=== PATIENT | female | born 1960 | race Caucasian/White ===

== ENCOUNTER 2016-11-10 13:59 | Outpatient (CLI) | payer OTHER | END 2016-11-10 20:25 | disposition home or self-care (01) | LOC: SRD 13:59 | DX: Z01.818 Encounter for other preprocedural examination (principal) | CPT/HCPCS: 71020-TC ==

== ENCOUNTER 2017-04-27 08:41 | Emergency (ER) | payer OTHER ==
[~2017-04-27] VITALS: Ht 162.6 cm; Wt 68.0 kg
[2017-04-27 08:47] VITALS: BP_SYST 156
--- NOTE | 2017-04-27 08:54 | NUR ---
Patient to ER bed 6 to gown for evaluation. Side rails up. Report given to Josiah POOLE.
--- NOTE | 2017-04-27 09:02 | NUR ---
Dr. Patel at bedside for evaluation
--- NOTE | 2017-04-27 09:05 | NUR ---
Pt c/o right shoulder pain non injury. Taking ibuprofen for pain without relief. Unable to reach up and work effectively.
[2017-04-27 09:20] VITALS: BP_SYST 156
--- NOTE | 2017-04-27 09:20 | NUR ---
Patient given written and verbal discharge instructions and verbalizes understanding. ER MD discussed with patient the results and treatment provided. Patient in stable condition. ID arm band removed. Rx of norco given. Patient educated on pain management and to follow up with PMD. Pain Scale 3/10. Opportunity for questions provided and answered. Advised to return to Dr. Stiles for follow up.
== END 2017-04-27 09:20 | disposition home or self-care (01) ==
LOC: SED 08:41
DX: M77.8 Other enthesopathies, not elsewhere classified (principal); M79.601 Pain in right arm; M75.01 Adhesive capsulitis of right shoulder
CPT/HCPCS: 99283

== ENCOUNTER 2017-05-08 11:00 | Outpatient (CLI) | payer OTHER | END 2017-05-08 19:41 | disposition home or self-care (01) | LOC: SMI 11:00 | PROVIDERS: ATTEND Orthopaedic Surgery | DX: M19.012 Primary osteoarthritis, left shoulder (principal); M75.82 Other shoulder lesions, left shoulder | CPT/HCPCS: 73221 ==